=== PATIENT | male | born 1960 | race Caucasian/White ===

== ENCOUNTER → 2020-05-06 | Outpatient (CLI) | payer MEDICARE ==
[~2020-05-06] MED LIST: ALPRAZOLAM1 MG PO; ASPIRIN EC81 MG PO; CRESTOR20 MG PO; CYCLOBENZAPRINE10 MG PO; FISH OIL 1,0001 EACH PO; GLUCOPHAGE 500500 MG PO; HYDROCODON-ACE1 EAC6 PO; NEURONTIN300 MG PO; PLAVIX75 MG PO; TOPROL XL25 MG PO
== END ==
LOC: CT 04-24 13:00
DX: I71.4 Abdominal aortic aneurysm, without rupture (principal); I65.23 Occlusion and stenosis of bilateral carotid arteries; I70.202 Unspecified atherosclerosis of native arteries of extremities, left leg; R93.6 Abnormal findings on diagnostic imaging of limbs; I74.5 Embolism and thrombosis of iliac artery; I77.1 Stricture of artery
CPT/HCPCS: 36415; 70498; 82565; 93880; 93922; 93925; Q9963; Q9967

== ENCOUNTER → 2020-05-20 | Outpatient (CLI) | payer MEDICARE ==
[2020-05-20 13:57] LABS: HEMOGLOBIN 17.8 gm/dl (14.0-17.5); RED BLOOD COUNT 5.61 M/UL (4.20-5.50); WHITE BLOOD COUNT 7.8 K/UL (4.5-11.0)
[2020-05-20 14:15] LABS: BUN/CREATININE RATIO 15 (0-10)
== END ==
LOC: OPSV2 12:30
PROVIDERS: Surgery
DX: Z01.818 Encounter for other preprocedural examination (principal); R94.31 Abnormal electrocardiogram [ECG] [EKG]; I44.4 Left anterior fascicular block
CPT/HCPCS: 36415; 71046; 80053; 81001; 85025; 85610; 85730; 86850; 86900; 86901; 93005

== ENCOUNTER 2020-05-21 06:25 | Inpatient (IN) | payer MEDICARE ==
[~2020-05-21] VITALS: Ht 170.2 cm; Wt 68.0 kg
[2020-05-21] MEDS ORDERED: ALPRAZOLAM1 MG PO (07:11)
[2020-05-21] MEDS ORDERED: NEURONTIN300 MG PO (07:12)
[2020-05-21] MEDS ORDERED: HYDROCODON-ACE1 EAC6 PO (07:13)
[2020-05-21] MEDS ORDERED: CYCLOBENZAPRINE10 MG PO (07:14)
[2020-05-21] MEDS ORDERED: CRESTOR20 MG PO (07:14)
[2020-05-21] MEDS ORDERED: GLUCOPHAGE 500500 MG PO (07:15)
[2020-05-21] MEDS ORDERED: TOPROL XL25 MG PO (07:16)
[2020-05-21] MEDS ORDERED: ASPIRIN EC81 MG PO (07:17)
--- NOTE | 2020-05-21 14:36 | NUR ---
[id number] MARKED DIFF NOTED BETWEEN ART LINE AND BP. ART LINE ZEROED X 3, FLUSHED, LEVELED PER SEVERAL DIFF NURSES WITHOUT CHANGE. PT ALERT AND ORIENTED X 3. ARM WARM WITH GOOD PULSES, PT ABLE TO WIGGLE FINGERS ON LEFT HAND WITHOUT DIFF. MD NOTIFIED OF DIFF. ORDERS NOTED TO CHECK BPS WITH CUFF IN STEPHANIE ARMS AND LEGS AND REPORT BACK TO MD. RLEG 59/34, LLEG 47/16, RARM 111/52, LARM 77/51. PT STATES HIS PRESSURE IS ALWAYS LOWER ON LEFT SIDE VS RIGHT SIDE. HE STATES HE WAS GIVEN A BP PILL PRIOR TO SURGERY BECAUSE THEY FELT THAT BP IN RARM WAS TOO HIGH. INFO GIVEN TO MD. SHE STATES THAT LEG PRESSURES ARE LOW R/T TO POOR VASCULARIZATION AND TO USE BP CUFF PRESSURES. SBP TO STAY BETWEEN 110-130.
[2020-05-22 04:50] LABS: WHITE BLOOD COUNT 8.2 K/UL (4.5-11.0)
[2020-05-22 04:51] LABS: HEMOGLOBIN 14.1 gm/dl (14.0-17.5); RED BLOOD COUNT 4.59 M/UL (4.20-5.50)
[2020-05-22 05:04] LABS: BUN/CREATININE RATIO 11 (0-10)
[2020-05-22] MEDS ORDERED: PLAVIX75 MG PO (17:24)
[2020-05-22] MEDS ORDERED: FISH OIL 1,0001 EACH PO (17:24)
== END 2020-05-22 18:10 | disposition home or self-care (01) | DRG 39 ==
LOC: OR 06:25 → CCU 11:07 → OR 12:30 → CCU 16:18
PROVIDERS: ADMIT Surgery
PROC: 03CN0ZZ Extirpation of Matter from Left External Carotid Artery, Open Approach (ICD-10-PCS; 2020-05-21)
PROC: 03CL0ZZ Extirpation of Matter from Left Internal Carotid Artery, Open Approach (ICD-10-PCS; 2020-05-21)
PROC: 03CJ0ZZ Extirpation of Matter from Left Common Carotid Artery, Open Approach (ICD-10-PCS; principal; 2020-05-21 07:30)
DX: I65.22 Occlusion and stenosis of left carotid artery (principal); I10 Essential (primary) hypertension; E78.5 Hyperlipidemia, unspecified; I71.4 Abdominal aortic aneurysm, without rupture; E11.9 Type 2 diabetes mellitus without complications; R91.1 Solitary pulmonary nodule; M19.90 Unspecified osteoarthritis, unspecified site; F17.210 Nicotine dependence, cigarettes, uncomplicated; Z87.01 Personal history of pneumonia (recurrent); Z85.9 Personal history of malignant neoplasm, unspecified; Z90.49 Acquired absence of other specified parts of digestive tract; Z79.84 Long term (current) use of oral hypoglycemic drugs; Z79.899 Other long term (current) drug therapy; Z79.02 Long term (current) use of antithrombotics/antiplatelets; Z79.82 Long term (current) use of aspirin
CPT/HCPCS: 36415; 71046; 80048; 80053; 81001; 82962; 85025; 85027; 85610; 85730; 86850; 86900; 86901; 93005; J0690; J1580; J1644; J2001; J2370; J2405; J2704; J2710; J2720; J3010; J7030; J7040; J7050; J7120

== ENCOUNTER → 2020-10-25 | Outpatient (CLI) | payer MEDICARE | LOC: EXRD 15:30 | DX: H34.9 Unspecified retinal vascular occlusion (principal); I65.23 Occlusion and stenosis of bilateral carotid arteries | CPT/HCPCS: 93880 ==

== ENCOUNTER 2021-07-01 14:14 | Emergency (ER) | payer MEDICARE ==
[2021-07-01 15:17] LABS: RED BLOOD COUNT 6.04 M/UL (4.20-5.50); WHITE BLOOD COUNT 7.7 K/UL (4.5-11.0)
[2021-07-01 15:46] LABS: BUN/CREATININE RATIO 15 (0-10)
[2021-07-01] MEDS ORDERED: OMNICEF 300 MG300 MG PO (20:40)
[2021-07-01] MEDS ORDERED: BACTRIM DS TAB1 EACH PO (20:40)
== END 2021-07-01 20:56 | disposition home or self-care (01) ==
LOC: ER1 14:14
PROVIDERS: Physician Assistant Medical
DX: L03.116 Cellulitis of left lower limb (principal); J18.9 Pneumonia, unspecified organism; E11.9 Type 2 diabetes mellitus without complications; F17.200 Nicotine dependence, unspecified, uncomplicated; Z20.822 Contact with and (suspected) exposure to COVID-19
CPT/HCPCS: 0240U; 71046; 80053; 85025; 85379; 85652; 86140; 96374; 99283; J0696